=== PATIENT | female | born 1985 | race Caucasian/White ===

== ENCOUNTER 2021-02-07 03:00 | Emergency (ER) | payer MEDICAID, SELFPAY ==
[2021-02-07 03:02] VITALS: BP 125/84; PULSE 88; RESP 18; TEMP 36.2; O2SAT 99; BMI 18.0
--- NOTE | 2021-02-07 03:03 | ECG_ITS ---
[facility] [place] Date: 2021-02-07 Pat Name: Toshia Angel Department: Room: Gender: Female [employer]: : 1985 Requested By: Luis Fernadno Pierre Order Number: [id number] Vesta MD: Pilar Rubio M.D. Measurements Intervals [place] Rate: 81 P: 75 MO: 132 QRS: 73 QRSD: 79 T: 68 QT: 365 QTc: 426 Interpretive Statements SINUS RHYTHM No previous ECG available for comparison Electronically Signed On 02-07-2021 18:31:29 CDT by Pilar Rubio M.D. [id number]
--- NOTE | 2021-02-07 03:04 | W.ED.GENADLT ---
HPI - General Adult General: Chief complaint: Overdose Stated complaint: possible posioning Time Seen by Provider: 02/07/21 03:01 Source: patient and EMS Mode of arrival: EMS Limitations: no limitations History of Present Illness: HPI narrative: 5-year-old female who states that she was doing cocaine with a friend danica. States she used the cocaine roughly 1 to 2 hours ago and started to feel very anxious. States she did use cocaine once before and it felt as anxious. States she felt like her heart was racing and she is having some chest pain. She states she started to feel improved currently. She is able answer all my questions but does appear anxious at this time. Associated symptoms: Reports chest pain; Deny dyspnea, headache(s), nausea, rash or vomiting Review of Systems Const: Denies: fever(s), chills, body aches or change in appetite Eyes: Denies: blurry vision or eye discomfort ENMT: Denies: throat pain or dental pain Card: Reports: chest pain Resp: Denies: dyspnea GI: Denies: abdominal pain, nausea, vomiting or diarrhea : Denies: dysuria Musc: Denies: neck pain or back pain Skin/Breast: Denies: rash Neuro: Denies: headache(s) Psych: Reports: anxiety Cristóbal/Lymph: Denies: easy bruising All/Imm: Denies: urticaria Physical Exam Const: COMMON NORMALS: no acute distress, patient oriented x3 and healthy appearing NUTRITIONAL APPEARANCE: thin HENMT: COMMON NORMALS: normocephalic and atraumatic HEAD & SCALP: normocephalic and atraumatic Eye: COMMON NORMALS: Equal, round and reactive pupils present and EOMs intact bilaterally PUPIL: Yes Equal, round and reactive pupils present Neck/C-Spine: COMMON NORMALS: full ROM and supple Chest: COMMONS NORMALS: normal inspection of the chest and normal palpation of entire chest wall Resp: COMMON NORMALS: normal respiratory effort, No retractions, No use of accessory muscles and clear to auscultation bilaterally AUSCULTATION: clear to auscultation bilaterally Cardio: COMMON NORMALS: regular rate, regular rhythm and No murmurs present (Cardio) RATE: regular rate RHYTHM: regular rhythm GI: COMMON NORMALS: Normal to inspection, nondistended, normoactive bowel sounds present, Soft to palpation, non-tender and no masses PALPATION: Yes Soft to palpation Extremity: COMMON NORMALS: normal to inspection and full ROM Neuro: COMMON NORMALS: patient oriented x3, moves all extremities and no focal motor deficits Psych: COMMON NORMALS: mental status grossly normal, Normal thought process present and cooperative MOOD & AFFECT: Yes anxious THOUGHT PROCESS: Normal thought process present Skin: COMMON NORMALS: no rashes or lesions noted and no wounds GENERAL SKIN EXAM: no rashes or lesions noted Course Vital Signs: Vital signs: Vital Signs Temperature 97.1 F L 02/07/21 03:02 Pulse Rate 73 02/07/21 04:13 Respiratory Rate 16 02/07/21 04:13 Blood Pressure 103/72 02/07/21 04:13 Pulse Oximetry 97 02/07/21 04:13 MDM - General Adult MDM Narrative: Medical decision making narrative: Patient presents here with drug abuse. Patient is well-appearing here and feels much improved after Ativan. She has no signs of overdose and her vital signs are normal. She is stable for discharge with her family. She is to return if worsening. EKG Data^: EKG 1: Attestation: I personally reviewed and interpreted this EKG as follows: EKG interpretation date: 02/07/21 EKG interpretation time: 03:24 Interpretation: nsr hr [address] or t wave abnormalities qrs 79 qtc 403 Discharge Plan Discharge Patient Disposition: Home Clinical Impression: Drug ingestion Condition: Stable Discharge Orders: Discharge ED (Routine); Ordered 02/07/21 Ordered By: Luis Fernando Pierre Referrals: Sal Barrera FNP [Primary Care Provider] - Discharge Diet: Advance as tolerated Discharge Activity: Resume usual activity Patient Instructions: Polysubstance Abuse (ED) Coding Level of Care Code ED Air Sampler for Chg Fwd Exam Comprehensive
[2021-02-07] MEDS: LORazepam 2 mg/mL INJ 1 mL 1 MG IVP (03:17)
[2021-02-07 04:13] VITALS: BP 103/72; PULSE 73; RESP 16; O2SAT 97
[2021-02-07 04:22] VITALS: BP 103/72; PULSE 73; RESP 16; O2SAT 97
== END 2021-02-07 04:22 | disposition home or self-care (01) ==
PROVIDERS: Emergency Provider Emergency Medicine; PCP Nurse Practitioner Family
DX: T88.7XXA Unspecified adverse effect of drug or medicament, initial encounter (principal); T40.5X5A Adverse effect of cocaine, initial encounter
CPT/HCPCS: 93005; 96374; 99284; J2060